=== PATIENT | male | born 1990 | race Caucasian/White ===

== ENCOUNTER 2021-05-28 16:19 | Emergency (ER) | payer OTHER ==
[~2021-05-28] VITALS: Ht 177.8 cm; Wt 89.8 kg
[2021-05-28 16:25] VITALS: BP 133/84
[2021-05-28] MEDS ORDERED: CEPHALEXIN250 MG PO (18:12)
== END 2021-05-28 18:37 | disposition home or self-care (01) ==
LOC: ER 16:19
DX: S60.221A Contusion of right hand, initial encounter (principal); W17.89XA Other fall from one level to another, initial encounter; Y93.89 Activity, other specified; Y92.89 Other specified places as the place of occurrence of the external cause; Y99.8 Other external cause status